=== PATIENT | female | born 1990 | race Caucasian/White ===

== ENCOUNTER → 2016-11-03 | Outpatient (CLI) | payer SELFPAY ==
--- NOTE | 2016-11-04 06:08 | REP ---
Clinical: Anatomical evaluation. Comparison: None . Findings: Examination demonstrates a single live intrauterine in breech presentation. motion is identified by technologist. Placenta is noted posteriorly and grade one without evidence for placenta previa or abruption. Amniotic fluid volume is normal. Cervix measures 3.9 cm in length and appears closed. No evidence for nuchal cord. Gestational age by LMP 24 weeks 0 days with ZACH 02/23/2017 . Gestational age by current measurements 23 weeks 2 days with ZACH 02/28/2017 . FHR equals 150 beats per minute. BPD 5.6 cm 23 weeks 0 days HC 21.7 cm 23 weeks 5 days AC 19.5 cm 24 weeks 1 day FL 4.2 cm 23 weeks 3 days HL 4.1 cm 24 weeks 5 days HC/AC ratio 1.11 Estimated weight 630 grams ( 39th percentile). Anatomical assessment demonstrates normal structures including cranium, choroid plexus, cavum, cerebellum/posterior fossa, facial features, lungs, four-chamber heart/ventricular outflow tracts, diaphragm, stomach, cord insertion/three-vessel cord, kidneys/bladder, spine, and extremities. Echogenic focus in the left cardiac ventricle likely prominent chordae tendineae. Impression: Single live intrauterine in breech presentation demonstrating appropriate interval growth. Prominent chordae tendineae. Anatomical assessment is otherwise complete and normal. Signed by Germain Cee MD 11/04/2016 05:59 A
== END ==
LOC: M SMT 13:47
PROVIDERS: ATTEND Nurse Practitioner Women's Health
DX: Z34.92 Encounter for supervision of normal pregnancy, unspecified, second trimester (principal)

== ENCOUNTER 2017-02-23 00:56 | Inpatient (IN) | payer OTHER ==
[~2017-02-23] VITALS: Ht 160 cm; Wt 65.0 kg
[2017-02-23] VITALS (7 sets, daily range): BP systolic 115–133; BP diastolic 56–83
[2017-02-23 01:20] LABS: MEAN CORPUSCULAR HEMOGLOBIN 24.3 pg (27.0-33.0); MEAN CORPUSCULAR HGB CONC 33.4 g/dl (32.0-36.5); MEAN CORPUSCULAR VOLUME 72.7 fl (80.0-96.0); RED CELL DISTRIBUTION WIDTH 16.4 % (11.5-14.5); WHITE BLOOD COUNT 10.9 K/mm3 (4.0-10.0)
[2017-02-23] MEDS ORDERED: OXYTOCIN 30 UNITS IN 0.9% NaCl 500ML IV BAG (J2590) As Ordered ONE (01:24)
[2017-02-23] MEDS ORDERED: DIBUCAINE 1% OINTMENT 30GM TOP PRN (02:00)
[2017-02-23] MEDS ORDERED: OXYTOCIN DRIP 30 UNITS in APPROPRIATE DILUENT 1 EA IV ONE (02:00)
[2017-02-23] MEDS ORDERED: METHYLERGONOVINE MALEATE 0.2 MG TAB PO PRN (02:00)
[2017-02-23] MEDS ORDERED: RHOGAM 300 MCG (1500 IU) INJ (J2790) IM SCH (02:00)
[2017-02-23] MEDS ORDERED: ONDANSETRON 4MG/2ML VIAL (J2405) IV PRN (02:00)
[2017-02-23] MEDS ORDERED: IBUPROFEN 800 MG TAB PO PRN (02:00)
[2017-02-23] MEDS ORDERED: MEASLES,MUMPS,RUBELLA VACCINE INJ (MMR-II) (90707) SC SCH (02:00)
[2017-02-23] MEDS ORDERED: ACETAMINOPHEN 500 MG TAB PO PRN (02:00)
[2017-02-23] MEDS ORDERED: DOCUSATE SODIUM 100 MG CAP PO PRN (02:00)
[2017-02-23 04:02] LABS: HBSAG L&D NEGATIVE (NEGATIVE)
--- NOTE | 2017-02-23 05:14 | HPE ---
DATE OF ADMISSION: 02/23/2017 HISTORY: 26-year-old, (G) 3, para (P) 2 female, at 40-0/7 weeks gestation by last menstrual period (LMP) consistent with 16 week ultrasound, estimated date of confinement (EDC) 02/23/2017, presents with regular contractions every 2-3 minutes for the last several hours that increased in intensity on the way in. She scheduled delivery at [facility]. She was on her way from [place] and did not feel she was going to be able to make it there in time so she stopped at [facility]. COURSE: The patient's care is with Nereyda Girard at [facility]. She had no complications. OBSTETRICAL HISTORY: 1. November 2011, vaginal delivery of 4 pound 4 ounce female , no complications. 2. September 2015, 40 week vaginal delivery of 7 pound 11 ounce male , no complications. MEDICAL HISTORY: None. SURGICAL HISTORY: None. ALLERGIES: None. SOCIAL HISTORY: The father of the baby is involved. The patient denies cigarettes, alcohol or drug use during . FAMILY HISTORY: Noncontributory. PHYSICAL EXAMINATION: Blood pressure 130/70. She appears uncomfortable. Head and neck exam normal. Lungs clear. Heart regular rate and rhythm. Abdomen nontender, gravid. heart tones category 1. Cervix 8 cm, 100% effaced, -1 station, vertex. Extremities nontender. LABORATORIES: Blood type is O positive. Rubella immune. RPR nonreactive. Hepatitis B and C negative. HIV negative. GBS negative. ASSESSMENT: 26-year-old, 3, para 2 female, at 40-0/7 weeks gestation presents in active labor. The patient is admitted on 02/23/2017. Anticipate vaginal delivery.
[2017-02-23] MEDS: PRENATAL VITAMIN TAB PO SCH (09:00)
--- NOTE | 2017-02-23 10:56 | DN ---
DATE OF DELIVERY: 02/23/2017 PREDELIVERY DIAGNOSIS: 40 weeks gestation, labor. POSTDELIVERY DIAGNOSIS: Delivered. PROCEDURE: Spontaneous vaginal delivery. TORPEDO SHOOTER: Easton Dunlap MD ANESTHESIA: None. ESTIMATED BLOOD LOSS: 300 mL. FINDINGS: 6 pound 10 ounce male infant. scores 8 and 9. DELIVERY SUMMARY: After a short second stage, the patient had spontaneous delivery of a 6 pound 10 ounce male , scores 8 and 9, with no delivery anesthesia. There was no nuchal cord. The shoulder was delivered with ease. The cried spontaneously and was handed to the mother. The cord was doubly clamped and cut. The placenta delivered spontaneously and appeared to be intact. The patient received IV pitocin immediately after delivery of the placenta. There were no vaginal lacerations present. Sponge counts were correct.
[2017-02-24 06:07] VITALS: BP 123/72
[2017-02-24] MEDS: PRENATAL VITAMIN TAB PO SCH (07:58)
[2017-02-24] MEDS ORDERED: IBUP-1114 PO (08:32)
[2017-02-24] MEDS ORDERED: PRENTAB9 PO (08:32)
[2017-02-24] MEDS ORDERED: ACET50TA PO (08:32)
== END 2017-02-24 14:00 | disposition home or self-care (01) | DRG 560 ==
LOC: M LDO 00:56 → M LDI 01:02 → M OBS 04:07
PROVIDERS: ADMIT Specialist; ATTEND Specialist
PROC: 10E0XZZ Delivery of Products of Conception, External Approach (ICD-10-PCS; principal; 2017-02-23)
DX: O48.0 Post-term pregnancy (principal); Z37.0 Single live birth; Z3A.40 40 weeks gestation of pregnancy

== ENCOUNTER 2018-05-22 16:39 | Emergency (ER) | payer MEDICAID, SELFPAY, OTHER ==
[2018-05-22] MEDS ORDERED: ISOVUE-370 76% 100ML VIAL (Q9967) As Ordered ×2 (17:33)
[2018-05-22 17:54] LABS: BASO % 0.4 % (0.0-1.0); EOS % 0.5 % (0.0-3.0); HEMATOCRIT 44.3 % (36.0-47.0); HEMOGLOBIN 14.8 g/dl (12.0-15.5); IMMATURE GRANULOCYTE % 0.2 % (0-3.0); LYMPH # 1.6 10^3/uL (1.5-6.5); LYMPH % 19.2 % (24.0-44.0); MEAN CORPUSCULAR HEMOGLOBIN 27.6 pg (27.0-33.0); MEAN CORPUSCULAR HGB CONC 33.4 g/dl (32.0-36.5); MEAN CORPUSCULAR VOLUME 82.6 fl (80.0-96.0); MONO # 0.3 10^3/uL (0.0-0.8); NEUTROPHILS # 6.3 10^3/uL (1.8-7.7); NEUTROPHILS % 76.7 % (36.0-66.0); PLATELET COUNT, AUTOMATED 279 10^3/uL (150-450); RED BLOOD COUNT 5.36 10^6/uL (4.00-5.40); RED CELL DISTRIBUTION WIDTH 13.2 % (11.5-14.5); WHITE BLOOD COUNT 8.2 10^3/uL (4.0-10.0)
[2018-05-22 18:14] LABS: CONTROL LINE HCG INT CTR LINE PRESENT; HCG, SERUM QUALITATIVE NEGATIVE (NEGATIVE)
[2018-05-22 18:19] LABS: ANION GAP 10 MEQ/L (8-16); BLOOD UREA NITROGEN 14 MG/DL (7-18); CALCIUM LEVEL 8.7 MG/DL (8.5-10.1); CARBON DIOXIDE LEVEL 27 MEQ/L (21-32); CHLORIDE LEVEL 104 MEQ/L (98-107); GLOMERULAR FILTRATION RATE > 60.0 (>60); GLUCOSE, FASTING 90 MG/DL (70-100); POTASSIUM SERUM 3.4 MEQ/L (3.5-5.1); SODIUM LEVEL 141 MEQ/L (136-145)
== END 2018-05-22 21:11 | disposition home or self-care (01) ==
LOC: M ED 16:39
DX: R10.9 Unspecified abdominal pain (principal); R11.0 Nausea; R19.7 Diarrhea, unspecified; Z79.899 Other long term (current) drug therapy; Z88.0 Allergy status to penicillin; Z88.7 Allergy status to serum and vaccine; Z88.1 Allergy status to other antibiotic agents
CPT/HCPCS: Q9967

== ENCOUNTER → 2018-05-25 | Outpatient (REF) | payer MEDICAID, SELFPAY, OTHER | LOC: M LAB REF 13:10 | DX: R19.7 Diarrhea, unspecified (principal) | CPT/HCPCS: 87507 ==

== ENCOUNTER → 2020-02-22 | Outpatient (CLI) | payer OTHER ==
[~2020-02-22] MED LIST: IBUP-1114 PO; MAPA500T2 PO; OMEP40CA97 PO; PRENTAB9 PO; PROBCAP14 PO
--- NOTE | 2020-02-23 01:55 | REP ---
Clinical: Anatomical evaluation. Comparison: None . Findings: Examination demonstrates a single live intrauterine in cephalic presentation. motion is identified by technologist. Placenta is noted posterior and grade I without evidence for placenta previa or abruption. Amniotic fluid volume is normal. Cervix measures 3.1 cm in length and appears closed. No evidence for nuchal cord. Gestational age by LMP 30 weeks 5 days with ZACH 04/27/2020 . Gestational age by current measurements 30 weeks 0 days with ZACH 05/02/2020 . FHR equals 146 beats per minute. BPD 7.8 cm 31 weeks 1 day HC 27.8 cm 30 weeks 3 days AC 26.5 cm 30 weeks 5 days FL 5.7 cm 30 weeks 0 days HL 5.5 cm date 31 weeks 5 days HC/AC ratio 1.05 Estimated weight 1576 grams ( 51st percentile). Anatomical assessment demonstrates normal structures including cranium, choroid plexus, cavum, facial features, lungs, four-chamber heart/ventricular outflow tracts, diaphragm, stomach, cord insertion/three-vessel cord, kidneys/bladder, spine, and extremities. Impression: 1. Single live intrauterine in cephalic presentation demonstrating appropriate estimated weight and growth. 2. Limited evaluation of the cerebellum/posterior fossa due to gestational age. Remainder of the anatomical assessment appears complete and normal.
== END ==
LOC: M WHC 14:55
PROVIDERS: ATTEND Advanced Practice Midwife
DX: Z36.89 Encounter for other specified antenatal screening (principal); Z3A.30 30 weeks gestation of pregnancy

== ENCOUNTER → 2020-04-03 | Outpatient (REF) | payer OTHER ==
[2020-04-03 15:48] LABS: GLUCOSE CHALLENGE TEST 1 HOUR 113 MG/DL (LESS THAN 140)
[2020-04-03 15:56] LABS: HEMATOCRIT 37.8 % (36.0-47.0); HEMOGLOBIN 11.4 g/dl (12.0-15.5); MEAN CORPUSCULAR HEMOGLOBIN 24.1 pg (27.0-33.0); MEAN CORPUSCULAR HGB CONC 30.2 g/dl (32.0-36.5); MEAN CORPUSCULAR VOLUME 79.7 fl (80.0-96.0); PLATELET COUNT, AUTOMATED 279 10^3/uL (150-450); RED BLOOD COUNT 4.74 10^6/uL (4.00-5.40); WHITE BLOOD COUNT 8.8 10^3/uL (4.0-10.0)
[2020-04-03 16:13] LABS: HEPATITIS B SURFACE ANTIGEN NEGATIVE (NEGATIVE)
[2020-04-03 16:40] LABS: HEPATITIS C VIRUS ABY INDEX 0.1 INDEX (<0.8)
[2020-04-03 16:41] LABS: HIV 1&2 SCREEN CENTAUR NEGATIVE (NEGATIVE)
[2020-04-03 17:10] LABS: CHLAMYDIA DNA AMPLIFICATION NEGATIVE (NEGATIVE); GC DNA AMPLIFICATION NEGATIVE (NEGATIVE)
== END ==
LOC: M PLALAB 10:43
PROVIDERS: ATTEND Advanced Practice Midwife
DX: Z34.80 Encounter for supervision of other normal pregnancy, unspecified trimester (principal); Z3A.00 Weeks of gestation of pregnancy not specified

== ENCOUNTER → 2020-04-03 | Outpatient (REF) | payer OTHER | LOC: M SFHCWAGY 16:31 | PROVIDERS: ATTEND Advanced Practice Midwife | DX: Z36.89 Encounter for other specified antenatal screening (principal); Z3A.36 36 weeks gestation of pregnancy ==

== ENCOUNTER 2020-04-24 22:49 | Inpatient (IN) | payer OTHER ==
[~2020-04-24] VITALS: Ht 157.5 cm; Wt 64.0 kg
[2020-04-24] MEDS ORDERED: OXYTOCIN 30 UNITS IN 0.9% NaCl 500ML IV BAG (J2590) As Ordered ONE (23:10)
[2020-04-24 23:24] LABS: HEMOGLOBIN 11.6 g/dl (12.0-15.5); MEAN CORPUSCULAR HGB CONC 32.2 g/dl (32.0-36.5); MEAN CORPUSCULAR VOLUME 74.4 fl (80.0-96.0); PLATELET COUNT, AUTOMATED 260 10^3/uL (150-450); RED BLOOD COUNT 4.84 10^6/uL (4.00-5.40); WHITE BLOOD COUNT 10.9 10^3/uL (4.0-10.0)
[2020-04-25] MEDS ORDERED: OXYTOCIN DRIP 30 UNITS in IV 1 EA IV SCH (01:49)
[2020-04-25] MEDS ORDERED: METHYLERGONOVINE MALEATE 0.2 MG TAB PO PRN (02:00)
[2020-04-25] MEDS ORDERED: ACETAMINOPHEN 500 MG TAB PO PRN (02:00)
[2020-04-25] MEDS ORDERED: IBUPROFEN 600MG TAB PO PRN (02:00)
[2020-04-25] MEDS ORDERED: MEASLES,MUMPS,RUBELLA VACCINE INJ (MMR-II) (90707) SC SCH (02:00)
[2020-04-25] MEDS ORDERED: ACETAMINOPHEN TAB 650MG DOSE (2X325MG) PO PRN (02:00)
[2020-04-25] MEDS ORDERED: DIBUCAINE 1% OINTMENT 30GM TOP PRN (02:00)
[2020-04-25] MEDS ORDERED: RHOGAM 300 MCG (1500 IU) INJ (J2790) IM SCH (02:00)
[2020-04-25] MEDS ORDERED: DOCUSATE SODIUM 100 MG CAP PO PRN (02:00)
[2020-04-25] MEDS ORDERED: IBUPROFEN 800 MG TAB PO PRN (02:00)
[2020-04-25 03:12] VITALS: BP 103/59
[2020-04-25 06:26] VITALS: BP 110/65
[2020-04-25] MEDS ORDERED: PRENATAL VITAMINS CHEWABLE TABLET PO SCH (09:00)
--- NOTE | 2020-04-25 09:25 | HPE ---
DATE OF ADMISSION: 04/24/2020 HISTORY OF PRESENT ILLNESS Mena is a 29-year-old 4, para 3-0-0-3, 39-4/7 weeks gestation, EDC of 04/27/2020 based on last menstrual period. Presents to labor and delivery today with report of uncomfortable contractions that started a few hours ago and have progressively become more painful and closer together. She denies vaginal bleeding or leakage of fluid. The fetus has been active. Her care was initiated at [facility] in the first trimester. Her course was complicated by late care at 30 weeks gestation for care initiation. A remote history of chlamydia. OBSTETRICAL HISTORY November 2011 at 40 weeks gestation, 7 pounds 4 ounce female via vaginal delivery with no complications. September 2015 at 40 weeks gestation, 7 pounds 11 ounce male via vaginal delivery at [facility], avulsed cord, manual removal of placenta. February 2017 at 40 weeks gestation, 6 pound 10 ounce male via vaginal delivery. OBSTETRIC LABS O+, antibody screen negative. Urine culture no growth. GBS negative, syphilis negative, gonorrhea and chlamydia negative. Hepatitis B surface antigen negative. Hep C antibody nonreactive. HIV nonreactive. Gestational diabetic screening normal at 113. PAST MEDICAL HISTORY Noncontributory. SURGERIES None. SOCIAL HISTORY The patient is single; however, the father of the baby is supportive and at bedside. She is a nonsmoker. She denies alcohol and drug use. She does have a history of chlamydia in the remote past. She denies a history of abuse physical, sexual and emotional. ALLERGIES AMOXICILLIN causes a rash, KEFLEX anaphylaxis, FLU VACCINE swelling, ADHESIVES a rash. CURRENT MEDICATIONS vitamin. OBJECTIVE Vital signs: Temperature 97, a pulse 111, respirations 22, BP is 122/73. She is alert and oriented x3. She does appear uncomfortable and she is deep breathing with her contractions. heart rate is 135 with moderate variability, positive accelerations, negative decelerations. Contractions are approximately every 3-4 minutes. Her abdomen is gravid, cephalic presentation. Estimated weight 7-1/2 pounds. Sterile vaginal exam per Tony JACKSON, 7 cm dilated, 100% effaced, zero station, bulging bag of water. ASSESSMENT Interim at 39-4/7, heart rate category one, active labor at term. PLAN Admit the patient to labor and delivery. Routine labs. Out of bed ad quique. Saline lock. The patient desires to cope with her labor physiologically. I do anticipate continued labor progress and a spontaneous vaginal delivery.
--- NOTE | 2020-04-25 09:30 | DN ---
DATE: 04/25/2020 Mena is a 4, para 4-0-0-4, now was admitted to labor and delivery in active labor. She coped with her labor physiologically. She had spontaneous rupture of membranes for clear fluid at 0035. She reached complete dilation at 0120. She pushed to a normal spontaneous vaginal delivery of a live female in JULISSA position with restitution to ROT position at 0123. There was no nuchal cord. The shoulders delivered with gentle downward traction and the corpus immediately followed. female was placed on maternal abdomen crying and active. Mouth and nares were bulb suctioned. The cord was clamped times two once pulsations ceased and cut by the father of the baby under my direction. The cord blood was obtained before that. Uterine hemostasis achieved with IV Pitocin rapid infusion and uterine fundal massage. Estimated blood loss 358 mL. Perineum and vagina inspected. Vagina was intact. There was a small right labial laceration that was hemostatic with no need for any repair. [place] female weighed 3640 grams, 8 pounds, 8 and 9. Mom is going to breastfeed her daughter, and the family have named her Daya. At the close of delivery, lap counts and instrument counts were correct and verified.
== END 2020-04-26 08:00 | disposition home or self-care (01) | DRG 560 ==
LOC: M LDO 22:49 → M LDI 22:58 → M OBS 04-25 02:51
PROVIDERS: ADMIT Advanced Practice Midwife; ATTEND Advanced Practice Midwife
PROC: 10E0XZZ Delivery of Products of Conception, External Approach (ICD-10-PCS; principal; 2020-04-25)
DX: O70.0 First degree perineal laceration during delivery (principal); Z88.0 Allergy status to penicillin; Z37.0 Single live birth; Z3A.39 39 weeks gestation of pregnancy; Z88.8 Allergy status to other drugs, medicaments and biological substances; Z88.7 Allergy status to serum and vaccine